=== PATIENT | male | born 1965 | race Caucasian/White ===

== ENCOUNTER 2021-10-29 19:35 | Emergency (ER) | payer MEDICAID, SELFPAY ==
[2021-10-29 19:56] VITALS: BP 110/64; BP 91/52; PULSE 83; PULSE 90; RESP 18; TEMP 36.8; O2SAT 95; O2SAT 98; BMI 18.6
[2021-10-29 19:56] LABS: Glucose, Whole Blood 86 mg/dL (60-115)
--- NOTE | 2021-10-29 20:00 | PC.NURSE ---
Addendum entered by Donna Leigh RN 10/29/21 22:29: pt upper/lower extremity had equal full strength, smile symmetrical Original Note: patient is awake/alert, able to answer questions about his medical history including what covid vaccination he had, pt is confused of date-thinks its a sunday in december, and wasnt sure of the president. Patient initially thought he was in [place] but corrected himself and stated he was at [facility].
--- NOTE | 2021-10-29 21:04 | ECG_ITS ---
Test Reason : general medical Blood Pressure : / mmHG Vent. Rate : 063 BPM Atrial Rate : 063 BPM P-R Int : 146 ms QRS Dur : 092 ms QT Int : 440 ms P-R-T Axes : 064 026 044 degrees QTc Int : 450 ms Normal sinus rhythm Normal ECG When compared with ECG of 22-FEB-2017 10:40, No significant change was found Referred By: Chyna Jean-Baptiste Electronically Signed By:BENTON LORA
--- NOTE | 2021-10-29 21:05 | ED_ITS ---
HPI - General Adult General Chief complaint: General Medical Stated complaint: ams Time Seen by Provider: 10/29/21 20:59 Source: patient and EMS Mode of arrival: EMS Limitations: no limitations History of Present Illness HPI narrative: Pt comes to the ED by EMS, According to the patient's new longterm, patient was altered. When EMS arrived to the longterm, patient was alert and oriented x3. Patient states that sometimes he gets confused when he leaves his stuff, but does not remember being altered or confused. Patient states that he does have history of occasional dizziness episodes but they self resolved. Patient states that this happened earlier today, did not have any chest pain or shortness of breath. At this time, patient is asymptomatic. Patient states that he does not know why he was sent to the emergency room Related Data Previous Rx's Medication Instructions Recorded ibuprofen 800 mg tablet 800 mg PO TID #90 tab 03/26/21 Allergies Allergy/AdvReac Type Severity Reaction Status Date / Time Iodinated Contrast Media Allergy Severe ANAPHYLAXIS Unverified 08/12/20 18:13 [IV DYE, IODINE CONTAINING CONTRAST ] buspirone Allergy Unknown dizziness Verified 05/21/19 00:00 buspirone Allergy Unknown dizziness Uncoded 07/03/19 00:[address] Allergy Unknown respiratory Uncoded 07/03/19 00:[address] Scan dye Allergy Unknown respiratory Uncoded 05/21/19 00:00 arrest sea food Allergy Unknown Uncoded 07/03/19 00:00 SEAFOOD Allergy Unknown UNKNOWN Uncoded 08/12/20 18:13 seafood Allergy Unknown Uncoded 05/21/19 00:00 Review of Systems Review of Systems: Constitutional : No Weight loss, No Fever, No Chills, No Night Sweats, No Fatigue, No Malaise ENT/Mouth : No Hearing loss, No Ear Pain, No Nasal Congestion, No Sinus Pain, No Hoarseness, No sore throat, No Rhinorrhea, No Swallowing Difficulty Eyes: No Eye Pain, No Swelling, No Redness, No Foreign Body, No Discharge, No Vision Changes Cardiovascular : No Chest Pain, No SOB, No Dyspnea on Exertion, No Orthopnea, No Edema, No Palpitations Respiratory : No Cough, No Sputum, No Wheezing, No Smoke Exposure, No Dyspnea Gastrointestinal : No Nausea, No Vomiting, No Diarrhea, No Constipation, No abdominal Pain, No Hematochezia, No Melena Genitourinary : no irregular bleeding, No Dysuria, No Urinary Frequency, No Hematuria, No Urinary Incontinence, No Urgency, No Flank Pain, No Urinary Flow Changes, No Hesitancy Musculoskeletal : No joint pain, No Myalgias, No Joint Swelling Skin : No Skin Lesions, No rash Neuro : No Weakness, No Numbness, No Paresthesias, No Loss of Consciousness, intermittent chronic episodes of dizziness, No Headache Psych : No Anxiety/Panic, No Depression, No SI/HI/AH/VH, No Social Issues, Heme/Lymph: No Bruising, No Bleeding,No Lymphadenopathy Endocrine : No Polyuria, No Polydipsia, No Temperature Intolerance [facility] Past Medical History Medical History COVID-19 Surgical History S/P cervical spinal fusion Social History Social History Alcohol intake: never Patient Tobacco Use Status: Former Tobacco user Use of substances other than those prescribed or required for medical reasons: No Advance Directives: No Advance Directives Information Provided: Yes Physical Exam Vital Signs: Vital Signs: Last Vital Signs Temp 98.0 F 10/29/21 22:00 Pulse 64 10/29/21 22:00 Resp 18 10/29/21 22:00 BP 96/52 L 10/29/21 22:00 Pulse Ox 64 L 10/29/21 22:00 BMI result Body Mass Index 18.6 Const: Other: Appearance: Alert. Oriented X3. No acute distress. Eyes: Pupils equal, round and reactive to light. ENT: Pharynx normal. Neck: Normal inspection. Neck supple. No lymph nodes noted. No crepitus CVS: Normal heart rate and rhythm. Pulses normal. Normal S1 and S2 Respiratory: No respiratory distress. Breath sounds normal. No Wheezing. No rales Abdomen: Soft and nontender. No rigidity. No distention. Skin: Skin warm and dry. Normal skin color. Normal skin turgor. Extremities: No lower extremity edema. No Lacerations. No Rash Neuro: Oriented X 3. No motor deficit. No sensory deficit. Moving all extermities. No slurred speech. Course Course Course Narrative: Throughout emergency room stay, patient has remained awake, alert and oriented x3. Calm, cooperative, not voicing any complaints. Patient's labs are at baseline, troponin negative, urinalysis negative. Patient feeling at baseline, patient being discharged to his longterm. Medical Decision Making Lab Data Result diagrams: 10/29/21 21:21 10/29/21 21:21 Labs: Lab Results 10/29/21 1210/29/21 Range/Units 19:51 21:21 21:21 WBC 10.1 (4.8-10.8) X10*3/uL RBC 4.72 (4.60-5.80) X10*6/uL Hgb 13.0 L (14.0-18.0) g/dl Hct 39.6 L (42.0-52.0) % MCV 83.9 (80.0-98.0) fL MCH 27.5 (27.0-33.0) pg MCHC 32.8 (31.0-36.0) g/dl RDW 14.3 (11.0-16.0) % Plt Count 321 (160-400) X10*3/uL MPV 8.7 L (9.4-12.4) fL Immature Gran % (Auto) 0.8 H (0.0-0.4) % Neut % (Auto) 60.6 (45-73) % Lymph % (Auto) 22.2 (20-40) % Canadian % (Auto) 8.5 (2-11) % Eos % (Auto) 6.5 H (0-4) % Baso % (Auto) 1.4 (0-2) % Lymph # (Auto) 2.3 (1.2-4.9) X10*3/uL Canadian # (Auto) 0.9 (0.1-1.2) X10*3/uL Eos # (Auto) 0.7 H (0.0-0.4) X10*3/uL Baso # (Auto) 0.1 (0.0-0.2) X10*3/uL Abs Immat Gran (auto) 0.08 H (0.00-0.03) X10*3/uL Absolute Neuts (auto) 6.2 (2.0-8.3) x10*3/uL Absolute Nucleated RBC 0.000 (0.0-0.012) X10*3/uL Nucleated RBC % (auto) 0.0 (0.0-0.2) /100WBC Sodium 135 (135-145) mmol/L Potassium 4.2 (3.3-5.1) mmol/L Chloride 98 (96-108) mmol/L Carbon Dioxide 31 H (22-29) mmol/L Anion Gap 10 L (12-20) BUN 19 H (9-16) mg/dL Creatinine 1.12 (0.5-1.4) mg/dL Estim Creat Clear Calc 68.5 Estimated GFR > 60 POC Glucose 86 (60-115) mg/dL Random Glucose 84 (60-115) mg/dL Calcium 10.1 (8.4-10.2) mg/dL Total Bilirubin 0.3 (0.0-1.0) mg/dL Direct Bilirubin < 0.2 (0.0-0.5) mg/dL AST 35 (5-37) U/L ALT 29 (0-40) U/L Alkaline Phosphatase 122 H (39-117) U/L Troponin I High Sens (<3.5-35.0) ng/L Total Protein 7.4 (6.5-8.0) g/dL Albumin 4.5 (3.5-5.0) g/dL Urine Color Urine Appearance Urine pH (5.0-8.0) Ur Specific [place] (1.005-1.025) Urine Protein (NEG-TRACE) MG/DL Urine Glucose (UA) (NEG) MG/DL Urine Ketones (NEG) MG/DL Urine Blood (NEG) Urine Nitrite (NEG) Ur Leukocyte Esterase (NEG) 10/29/21 10/29/21 Range/Units 21:21 21:21 WBC (4.8-10.8) X10*3/uL RBC (4.60-5.80) X10*6/uL Hgb (14.0-18.0) g/dl Hct (42.0-52.0) % MCV (80.0-98.0) fL MCH (27.0-33.0) pg MCHC (31.0-36.0) g/dl RDW (11.0-16.0) % Plt Count (160-400) X10*3/uL MPV (9.4-12.4) fL Immature Gran % (Auto) (0.0-0.4) % Neut % (Auto) (45-73) % Lymph % (Auto) (20-40) % Canadian % (Auto) (2-11) % Eos % (Auto) (0-4) % Baso % (Auto) (0-2) % Lymph # (Auto) (1.2-4.9) X10*3/uL Canadian # (Auto) (0.1-1.2) X10*3/uL Eos # (Auto) (0.0-0.4) X10*3/uL Baso # (Auto) (0.0-0.2) X10*3/uL Abs Immat Gran (auto) (0.00-0.03) X10*3/uL Absolute Neuts (auto) (2.0-8.3) x10*3/uL Absolute Nucleated RBC (0.0-0.012) X10*3/uL Nucleated RBC % (auto) (0.0-0.2) /100WBC Sodium (135-145) mmol/L Potassium (3.3-5.1) mmol/L Chloride (96-108) mmol/L Carbon Dioxide (22-29) mmol/L Anion Gap (12-20) BUN (9-16) mg/dL Creatinine (0.5-1.4) mg/dL Estim Creat Clear Calc Estimated GFR POC Glucose (60-115) mg/dL Random Glucose (60-115) mg/dL Calcium (8.4-10.2) mg/dL Total Bilirubin (0.0-1.0) mg/dL Direct Bilirubin (0.0-0.5) mg/dL AST (5-37) U/L ALT (0-40) U/L Alkaline Phosphatase (39-117) U/L Troponin I High Sens < 3.5 (<3.5-35.0) ng/L Total Protein (6.5-8.0) g/dL Albumin (3.5-5.0) g/dL Urine Color YELLOW Urine Appearance CLEAR Urine pH 6.0 (5.0-8.0) Ur Specific [place] 1.020 (1.005-1.025) Urine Protein NEG (NEG-TRACE) MG/DL Urine Glucose (UA) NEG (NEG) MG/DL Urine Ketones NEG (NEG) MG/DL Urine Blood TRACE (NEG) Urine Nitrite NEG (NEG) Ur Leukocyte Esterase NEG (NEG) ECG Data Attestation: I personally reviewed and interpreted this ECG as follows: (Normal sinus rhythm, heart rate 63, no ST segment depression or elevation, no T-wave inversion, QTC 450) Discharge Plan Discharge Clinical Impression: Confusion Patient Disposition: Home, Self-Care Additional Instructions: Please follow-up with your primary care physician tomorrow. If you have any worsening or new symptoms, please return to the emergency room or call 911 Prescriptions: No Action ibuprofen 800 mg tablet 800 mg PO TID Qty: 90 RF: 6
--- NOTE | 2021-10-29 21:23 | PC.NURSE ---
patient ambulated with stby assist to bathroom, patient a&ox3, vss, iv inserted, labs drawn, urine obtained, tech will do ekg/continue to monitor.
[2021-10-29 21:27] LABS: MANUAL DIFF FLAG NO
[2021-10-29 21:35] LABS: Basophils Absolute Auto 0.1 X10*3/uL (0.0-0.2); Basophils Percent Auto 1.4 % (0-2); Eosinophils Absolute Auto 0.7 X10*3/uL (0.0-0.4); Eosinophils Percent Auto 6.5 % (0-4); Hematocrit 39.6 % (42.0-52.0); Imm Gran Abs Auto 0.08 X10*3/uL (0.00-0.03); Imm Gran Pct Auto 0.8 % (0.0-0.4); Lymphocytes Absolute Auto 2.3 X10*3/uL (1.2-4.9); Lymphocytes Percent Auto 22.2 % (20-40); Mean Corpuscular HGB Conc 32.8 g/dl (31.0-36.0); Mean Corpuscular Hemoglobin 27.5 pg (27.0-33.0); Mean Corpuscular Volume 83.9 fL (80.0-98.0); Mean Platelet Volume 8.7 fL (9.4-12.4); Monocytes Absolute Auto 0.9 X10*3/uL (0.1-1.2); Monocytes Percent Auto 8.5 % (2-11); Neutrophils Absolute Auto 6.2 x10*3/uL (2.0-8.3); Neutrophils Percent Auto 60.6 % (45-73); Platelet Count 321 X10*3/uL (160-400); Red Blood Count 4.72 X10*6/uL (4.60-5.80); Red Cell Distribution Width 14.3 % (11.0-16.0); White Blood Count 10.1 X10*3/uL (4.8-10.8)
[2021-10-29 21:41] LABS: Appearance Urine CLEAR; Color Urine YELLOW; Glucose Urine UA NEG (NEG); Leukocyte Esterase Urine NEG (NEG); Nitrite Urine NEG (NEG); UACC Culture Trigger NO; Urine Blood TRACE (NEG); Urine Ketones NEG (NEG); Urine Protein NEG (NEG-TRACE)
[2021-10-29 21:48] LABS: Alanine Aminotransferase 29 U/L (0-40); Albumin Level 4.5 g/dL (3.5-5.0); Alkaline Phosphatase 122 U/L (39-117); Anion Gap 10 (12-20); Aspartate Amino Transferase 35 U/L (5-37); Bilirubin Direct < 0.2 mg/dL (0.0-0.5); Bilirubin Total 0.3 mg/dL (0.0-1.0); Blood Urea Nitrogen 19 mg/dL (9-16); Calcium 10.1 mg/dL (8.4-10.2); Carbon Dioxide 31 mmol/L (22-29); Chloride 98 mmol/L (96-108); Creatinine Clr Calc Pharmacy 68.5; Estimated Glomerular Filt Rate > 60; Glucose Random 84 mg/dL (60-115); Potassium 4.2 mmol/L (3.3-5.1); Sodium 135 mmol/L (135-145); Total Protein 7.4 g/dL (6.5-8.0)
[2021-10-29 21:51] LABS: Troponin-I High Sensitivity < 3.5 ng/L (<3.5-35.0)
[2021-10-29 22:00] VITALS: BP 96/52; PULSE 64; RESP 18; TEMP 36.7; O2SAT 64
[2021-10-29 23:14] LABS: Mucus Urine TRACE /LPF; Renal Epithelial Cells Urine TRACE /LPF; Squamous Epithelial Cell Urine TRACE /LPF
[2021-10-29 23:15] LABS: Calcium Oxalate Crystals Urine TRACE /LPF; WBC Urine 0-2 /HPF (0-4)
[2021-10-29 23:22] LABS: Amphetamine Screen Urine Not Detected (Not Detect); Barbiturates, Urine Not Detected (Not Detect); Benzodiazepines Screen Urine POSITIVE (Not Detect); Cannabinoid Screen Urine Not Detected (Not Detect); Cocaine Screen Urine Not Detected (Not Detect); Fentanyl, urine POSITIVE (Not Detect); Opiate Screen Urine Not Detected (Not Detect); Phencyclidine Screen Urine Not Detected (Not Detect)
== END 2021-10-29 23:58 | disposition home or self-care (01) ==
PROVIDERS: Emergency Provider Emergency Medicine
DX: R41.0 Disorientation, unspecified (principal)
CPT/HCPCS: 36415; 80048; 80076; 80307; 81001; 82947; 84484; 85025; 93005; 99283; 99285

== ENCOUNTER 2023-11-16 10:46 | Emergency (ER) | payer OTHER, SELFPAY ==
[2023-11-16 10:50] VITALS: BP 126/69; PULSE 79; RESP 18; TEMP 36.6; O2SAT 95; BMI 21.6
--- OUTSIDE RECORDS SUMMARY | 2023-11-16 11:16 | XMS_ITS | Continuity of Care Document ---
Author Name Unknown Organization [facility] ter Address [address] [place] [id number]- Care Team Providers Care Dust Puller Name Role Phone Emre CORNELIUS, Haroldo Smallwood Primary Care Physician [phone] Encounter [facility] Date(s): 09/14/21 - 09/14/[address] [address]- Encounter Diagnosis Shortness of breath(Final) - 09/14/21 Discharge Disposition: A-D/C Home Attending Physician: Kleber Montanez MD Admitting Physician: Kleber Montanez MD Referring Physician: Not on Staff, Referring MD Allergies, Adverse Reactions, Alerts Substance Reaction Severity Status Contrast Dye to CT scan dye, cardiac Acti ve Seafood Active Medications Acetaminophen By Mouth, 3 times a day, 1 tablet tid, 0 Refills, Maintenance, 07/18/21 8:19:00 EDT, Partial fill upon patient request if the prescription is for a schedule II opioid drug. Start Date: 07/18/21 Status: Ordered amiTRIPTYLINE = 25 mg, By Mouth, Daily at bedtime, 1-2 tabs, 0 Refills, Maintenance, 12/28/20 14:07:00 EST, Partial fill upon patient request if the prescription is for a schedule II opioid drug. Start Date: 12/28/20 Status: Ordered Breo Ellipta 100 mcg-25 mcg/inh inhalation powder 1 puffs, Inhalation, Daily, # 1 each, 5 Refills, Maintenance, 08/12/21 14:00:00 EDT, Powder, [id number], Partial fill upon patient request if the prescription is for a schedule II opioid drug., 1 puffs Inhalation Daily, 188, cm, 07/18/21 8:17:... Start Date: 08/12/21 Status: Ordered Flexeril 10 mg oral tablet 1 tablet = 10 mg, By Mouth, 3 times a day, Maintenance, 08/30/11 13:26:43 EDT Start Date: 08/30/11 Status: Ordered Gabapentin = 300 mg, By Mouth, 3 times a day, 0 Refills, Maintenance, 12/28/20 14:06:00 EST, Partial fill uponpatient request if the prescription is for a schedule II opioid drug. Start Date: 12/28/20 Status: Ordered HydrOXYzine Every 8 hours, PRN Other, 25-50 mg, 0 Refills, Maintenance, 12/28/20 14:05:00 EST, Partial fill upon patient request if the prescription is for a schedule II opioid drug. Start Date: 12/28/20 Status: Ordered ibuprofen 800 mg oral tablet 1 tablet = 800 mg, By Mouth, 3 times a day, Maintenance Start Date: 08/30/11 Status: Ordered Incruse Ellipta 62.5 mcg/inh inhalation powder 1 inhalation = 62.5 mcg, Inhalation, Every 24 hours, doses should be taken at least 24 hours apart,# 1 each, 11 Refills, Maintenance, 08/15/21 14:23:00 EDT, Powder, [facility]/pharmacy #[id number], Partial fill upon patient request if the prescription is for a sc... Start Date: 08/15/21 Status: Ordered Keppra 500 mg oral tablet 1 tablet = 500 mg, By Mouth, Daily, Maintenance, 08/30/11 13:26:24 EDT Start Date: 08/30/11 Status: Ordered Methadone = 75 mg, By Mouth, Daily, 0 Refills, Maintenance, 12/28/20 14:07:00 EST, Partial fill upon patient request if the prescription is for a schedule II opioid drug. Start Date: 12/28/20 Status: Ordered Sertraline = 200 mg, By Mouth, Daily, 0 Refills, Maintenance, 12/28/20 14:03:00 EST, Partial fill upon patientrequest if the prescription is for a schedule II opioid drug. Start Date: 12/28/20 Status: Ordered Trazodone = 300 mg, By Mouth, Daily at bedtime, 0 Refills, Maintenance, 12/28/20 14:06:00 EST, Partial fill upon patient request if the prescription is for a schedule II opioid drug. Start Date: 12/28/20 Status: Ordered Problem List Condition Effective Dates Status Health Status Inform ant Nicotine dependence with cur rent use(Confirmed) Active COPD with emphysema(Confirmed) Active Results Radiology Reports * Exam Date Time Procedure Performing Provider Status 09/14/21 9:00 AM Chest 2 Views Frontal and Lat Kristina Covington; Tyrell (Verified) Notes: (Chest 2 Views Frontal and Lat) Reason For Exam: Shortness of Breath, Fever;Other: RESULT: Chest 2 Views Frontal and Lat Chest 2 Views Frontal and Lat Hx of Present Illness: coming from detention, s p COVID(11 14), now vaccinated as well. developed PE shortly after covid dx. PCP wants pt r o for PE for intermittent SOB. Reason: Shortness of Breath, Fever; Clinical Question(s): Pneumonia COMPARISON: Multiple priors most recently to 12/28/2020 FINDINGS: LINES AND TUBES: None. LUNGS AND PLEURA: There continues to be small amount of patchy opacities in the bilateral lungs, predominantly in thelower lobes. Normal pulmonary vascularity. No pleural effusion. No pneumothorax. HEART, MEDIASTINUM AND FARNCIS: Heart is normal in size. Normal upper mediastinal and hilar contour. BONES AND SOFT TISSUES: No acute abnormality. IMPRESSION: Small amount of the bilateral patchy opacities remain, predominantly in the lower lobes, further improved from prior, which could represent sequela from prior COVID-19 pneumonia or represent acute atypical pneumonia. Please clinically correlate. I have personally reviewed the images and I agree with this report. WSN: [id number] Ordering Physician: Cody Thapa Dictated By: Miky Fajardo DO Dictated Date/Time: 09/14/21 10:03 a Reviewed By: Mariano Pederson MD Signed By: Mariano Pederson MD Signed Date/Time: 09/14/21 10:08 am Transcribed By: TYLER Transcribed Date/Time: 09/14/21 9:25 am Vital Signs Most recent to oldest [Reference Range]: 1 2 3 Height 188 cm (09/14/21 8:09 AM) Weight 68.2 kg (09/14/21 8:09 AM) Oxygen Saturation [94-100 %] 100 % (09/14/21 4:35 PM) 100 % (09/14/21 2:21 PM) 100 % (09/14/21 11:48 AM) Pulse Rate [55-90 bpm] 70 bpm (09/14/21 4:35 PM) 60 bpm (09/14/21 2:21 PM) 60 bpm (09/14/21 11:48 AM) Blood Pressure [90-138/55-84 mm Hg] 125/78mm Hg (09/14/21 4:35 PM) 110/63mm Hg (09/14/21 2:21 PM) 102/60mm Hg (09/14/21 11:48 AM) Respiratory Rate [16-30 br/min] 20 br/min (09/14/21 4:35 PM) 16 br/min (09/14/21 2:21 PM) 14 br/min *L* (09/14/21 11:48 AM) Temperature [96.8-100.4 DegF] 98 DegF (09/14/21 4:35 PM) 98 DegF (09/14/21 2:21 PM) 98.1 DegF (09/14/21 8:09 AM) Liters per Minute 0 L/min (09/14/21 8:09 AM) Mode of Delivery (Oxygen) Room air (09/14/21 4:35 PM) Room air (09/14/21 2:21 PM) Room air (09/14/21 11:48 AM) Blood pressure sites Arm, right (09/14/21 4:35 PM) Arm, right (09/14/21 2:21 PM) Arm, right (09/14/21 11:48 AM) Temperature Route Oral (09/14/21 4:35 PM) Oral (09/14/21 2:21 PM) Axillary (09/14/21 8:09 AM) Dry Weight 68.2 kg (09/14/21 8:09 AM) Weight Obtained Via Patient/family stated (09/14/21 8:09 AM) Dry Weight Obtained Via Patient/family stated (09/14/21 8:09 AM)
--- OUTSIDE RECORDS SUMMARY | 2023-11-16 11:17 | XMS_ITS | Continuity of Care Document ---
Author Name Unknown Organization [facility] Address [address] [place] [address]- Care Team Providers Care Atomic Welder Name Role Phone Haroldo Andrea MD Primary Care Physician Encounter [facility] Date(s): 08/12/21 - 09/11/21 [facility] [address] [place] [address]- [place] Allergies, Adverse Reactions, Alerts Substance Reaction Severity [...] 5 Refills, Maintenance, 08/12/21 14:00:00 EDT, Powder, [facility]/pharmacy #[id number], Partial fill upon patient request if the [...] 11 Refills, Maintenance, 08/15/21 14:23:00 EDT, Powder, [facility]/pharmacy #[id number], Partial fill upon [...]
--- OUTSIDE RECORDS SUMMARY | 2023-11-16 11:17 | XMS_ITS | Continuity of Care Document ---
Author Name Unknown Organization [facility] Address [address] [address]- Care Team Providers Care Canteen Manager Name Role Phone Emre CORNELIUS, Haroldo Smallwood Primary Care Physician Encounter [facility] Date(s): 11/17/21 - 01/04/22 [facility] [address] [address]- Attending Physician: Christy Bird MD Admitting Physician: Christy Bird MD Allergies, Adverse Reactions, Alerts Substance Reaction [...] inhalation powder 1 puffs, Inhalation, Daily, # 30 each, 6 Refills, Maintenance, 11/17/21 13:13:00 EST, Powder, [facility]/pharmacy #[id number], Partial fill upon patient request if the prescription is for a schedule II opioid drug., 1 puffs Inhalation Daily, 188, cm, 10/18/21 13:1... Start Date: 11/17/21 Status: Ordered Flexeril 10 mg oral tablet 1 tablet = 10 mg, By Mouth, 3 times a day, Maintenance, 08/30/11 13:26:43 EDT Start Date: 10/5/11 Status: Ordered Gabapentin = 300 mg, By [...] hours apart,# 1 each, 11 Refills, Maintenance, 11/17/21 13:14:00 EST, Powder, [facility]/pharmacy #[id number], Partial fill upon patient request if the prescription is for a sc... Start Date: 11/17/21 Status: Ordered Keppra 500 mg oral tablet 1 tablet = 500 mg, By Mouth, Daily, Maintenance, 08/30/11 13:26:24 EDT Start Date: 08/30/11 Status: Ordered Methadone = 90 mg, By Mouth, Daily, 0 Refills, Maintenance, [...] rent use(Confirmed) Active COPD with emphysema(Confirmed) Active Social History Social History Type Response Smoking Status Former smoker, quit more than 30 days ago; Use: Per pt on 10/18/2021 , he sometimes vapes. entered on: 10/18/21 Sex
--- OUTSIDE RECORDS SUMMARY | 2023-11-16 11:17 | XMS_ITS | Continuity of Care Document ---
Author Name Unknown Organization [facility] ter Address [address] [place] [address]- Care Team Providers Care Data Management Associate Name Role Phone Emre CORNELIUS, Haroldo Smallwood Primary Care Physician Encounter [facility] Date(s): 11/13/22 - 12/23/[address] [address]- Attending Physician: Christy Bird MD Admitting Physician: Christy Bird MD Referring Physician: Christy Bird MD Allergies, Adverse Reactions, [...] inhalation powder 1 puffs, Inhalation, Daily, # 60 each, 6 Refills, Maintenance, 10/04/22 10:08:00 EST, [id number], 30, INHALE 1 PUFF BY MOUTH DAILY, 188, cm, 08/18/22 14:08:00 EDT, Height, 68.2, kg, 09/14/21 8:15:00 EDT, Dry Weight Start Date: 10/04/22 Status: Ordered Flexeril 10 mg oral tablet [...] Incruse Ellipta 62.5 mcg/inh inhalation powder 1 inhalation, Inhalation, Every 24 hours, # 30 each, 11 Refills, Maintenance, 10/04/22 10:08:00 EST, [id number], 188, cm, 08/18/22 14:08:00 EDT, Height, 68.2, kg, 09/14/21 8:15:00 EDT, Dry Weight Start Date: 10/04/22 Status: Ordered Keppra 500 mg oral tablet [...] Date: 12/28/20 Status: Ordered Problem List Condition Confirmation Course Effective Dates Status Health St [facility] Informant Nicotine dependence with current use Confirmed Active COPD with emphysema Confirmed Active Social History Social History Type Response Smoking Status Former smoker, quit more than 30 days ago; Use: Per pt on 10/18/2021 , he sometimes vapes. entered on: 10/18/21 Sex Patient Care team information Care Team Personnel Name: Haroldo Andrea MD Position: Reference Physician Member Role: PCP Address: Address: [address] [place] [id number]- Name: Carolina Lyons RN Position: S ED RN W/OE and Tasks Member Role: Primary Care Nurse Care Team Related Persons Name: SANDRA GUIDRY Address: home [address] [place] [address] [place] [address]
--- OUTSIDE RECORDS SUMMARY | 2023-11-16 11:17 | XMS_ITS | Continuity of Care Document ---
Author Name Unknown Organization [facility] Address [address] [place] [address]- Care Team Providers Care Manager Of Business Name Role Phone Haroldo Andrea MD Primary Care Physician [phone] Encounter [facility] [place] Date(s): 10/05/21 - 11/04/21 [facility] [address] [place] [address]- [place] Allergies, Adverse Reactions, Alerts Substance Reaction [...] 5 Refills, Maintenance, 08/12/21 14:00:00 EDT, Powder, [facility]/pharmacy #[id number], Partial fill upon patient request if the [...] 11 Refills, Maintenance, 08/15/21 14:23:00 EDT, Powder, [facility]/pharmacy #[id number], Partial fill upon patient request if the [...]
--- OUTSIDE RECORDS SUMMARY | 2023-11-16 11:17 | XMS_ITS | Continuity of Care Document ---
Author Name Unknown Organization [facility] Address [address] [place] [address]- Care Team Providers Care Insurance Consultant Name Role Phone Emre CORNELIUS, Haroldo Smallwood Primary Care Physician Encounter [facility] [place] Date(s): 06/11/23 - 07/11/23 [facility] [address] [place] [id number] Attending Physician: Mica, Gilmer Admitting Physician: Admtr, Ar8 Referring Physician: Admtr, Ar8 Allergies, Adverse Reactions, Alerts Substance Reaction Severity [...] opioid drug. Start Date: 12/28/20 Status: Ordered Flexeril 10 mg oral tablet 1 tablet = 10 mg, By Mouth, 3 times a day, Maintenance, 08/30/11 13:26:43 EDT Start Date: 08/30/11 Status: Ordered fluticasone-vilanterol 100 mcg-25 mcg/inh inhalation powder 1 puffs, Inhalation, Daily, # 60 each, 6 Refills, Maintenance, 05/01/23 8:39:00 EDT, [facility], 30, INHALE 1 PUFF BY MOUTH DAILY, 188, cm, 08/18/22 14:08:00 EDT, Height, 68.2, kg, 09/14/21 8:15:00 EDT, Dry Weight Start Date: 05/01/23 Status: Ordered Gabapentin = 300 mg, By [...] each, 11 Refills, Maintenance, 10/04/22 10:08:00 EST, [id number], 188, cm, 08/18/22 14:08:00 EDT, Height, 68.2, [...] he sometimes vapes. entered on: 10/18/21 Sex Hospital Consult note * Event Display: Inpatient Consult Note, Non-BH Authored Date: Cardiology * Event Display: Non Cardiovascular Results Authored Date: * Event Display: EKG Non Authored Date: Patient Care team information Care Team Personnel Name: Emre CORNELIUS, Haroldo Smallwood Position: Reference Physician Member Role: PCP Address: Address: [address] [place] [id number]- Name: Carolina Lyons RN Position: [facility] RN Member Role: Primary Care Nurse Care Team Related Persons Name: SANDRA GUIDRY Address: [address] [place] [address]
--- OUTSIDE RECORDS SUMMARY | 2023-11-16 11:17 | XMS_ITS | Continuity of Care Document ---
Author Name Unknown Organization [facility] Address [address] [address]- Care Team Providers Care Director Of Marketing Google Performance Ads Name Role Phone Emre CORNELIUS, Haroldo Smallwood Primary Care Physician [place] [facility] [place]17[place]21 - 12/17/21 [facility] [address] [address]- Allergies, Adverse Reactions, Alerts Substance Reaction Severity [...] 6 Refills, Maintenance, 11/17/21 13:13:00 EST, Powder, [facility]/pharmacy #[id number], Partial fill upon patient request if the [...] 11 Refills, Maintenance, 11/17/21 13:14:00 EST, Powder, [facility]/pharmacy #[id number], Partial fill upon patient request if [...]
--- OUTSIDE RECORDS SUMMARY | 2023-11-16 11:17 | XMS_ITS | Continuity of Care Document ---
Author Name Unknown Organization [facility] Address [address] [place] [address]- Care Team Providers Care Analytical Strategist Name Role Phone Haroldo Andrea MD Primary Care Physician Encounter [facility] [place] ACCT R [id number] Date(s): 04/27/23 - 07/11/23 [facility] [address] [place] [address] Attending Physician: Christy Bird MD Admitting Physician: Christy Bird MD Referring Physician: Haroldo Andrea MD Allergies, Adverse Reactions, Alerts Substance Reaction [...] each, 6 Refills, Maintenance, 05/01/23 8:39:00 EDT, [facility] STORE 62843, 30, INHALE 1 PUFF BY MOUTH DAILY, [...] each, 11 Refills, Maintenance, 10/04/22 10:08:00 EST, [facility] ST[facility] 88954, 188, cm, 08/18/22 14:08:00 EDT, Height, 68.2, [...] Reference Physician Member Role: PCP Address: Address: [address] [place] [address]- Name: Carolina Lyons RN Position: S RN Member Role: Primary Care Nurse Care Team Related Persons Name: SANDRA GUIDRY Address: [address] [place] [address]
--- OUTSIDE RECORDS SUMMARY | 2023-11-16 11:17 | XMS_ITS | Continuity of Care Document ---
Author Name Unknown Organization [facility] ter Address [address] [place] [address]- Care Team Providers Care Quality Assurance Lead Name Role Phone Emre CORNELIUS, Haroldo Smallwood Primary Care Physician [place] [facility] [place] 12/25/20 - 12/25/[address] [address]- Encounter Diagnosis COVID-19(Final) - 12/25/20 Cough(Final) - 12/25/20 Discharge Disposition: A-D/C Home Attending Physician: Deisy Schmidt MD Admitting Physician: Deisy Schmidt MD Referring Physician: Not on Staff, Referring MD Allergies, Adverse Reactions, Alerts Substance Reaction Severity Status Contrast Dye to CT scan dye, cardiac Acti ve Medications Dilantin = 200 mg, By Mouth, 2 times a day, Maintenance Start Date: 08/30/11 Status: Ordered Flexeril 10 mg oral tablet 1 tablet = 10 mg, By Mouth, 2 times a day, Maintenance Start Date: 08/30/11 Status: Ordered ibuprofen 800 mg oral tablet 1 tablet = 800 mg, By Mouth, 3 times a day, Maintenance Start Date: 08/30/11 Status: Ordered Keppra 500 mg oral tablet 1 tablet = 500 mg, By Mouth, 2 times a day, Maintenance Start Date: 08/30/11 Status: Ordered Seroquel 400 mg oral tablet 1 tablet = 400 mg, By Mouth, Daily at bedtime, Maintenance Start Date: 08/30/11 Status: Ordered tramadol 50 mg oral tablet 1 tablet = 50 mg, By Mouth, Every 8 hours, 0 Refills, Maintenance Start Date: 10/06/11 Status: Ordered Tylox 1 tablet, By Mouth, 2 times a day, Maintenance Start Date: 08/30/11 Status: Ordered Wellbutrin 100 mg oral tablet 2 tablet = 200 mg, By Mouth, 2 times a day, Maintenance Start Date: 08/30/11 Status: Ordered Zoloft Tablet = 150 mg, By Mouth, Daily, Maintenance Start Date: 08/30/11 Status: Ordered Results Radiology Reports * Exam Date Time Procedure Performing Provider Status 12/25/20 11:57 AM Chest Portable ChandlerPrincess Chirinos; Tyrell (Verified) Notes: (Chest Portable) Reason For Exam: Shortness of Breath RESULT: Chest Portable Chest Portable Hx of Present Illness: Shortness of breath. COVID positive. COMPARISON: None. FINDINGS: LINES AND TUBES: None. LUNGS AND PLEURA: Moderate peripheral right upper lung airspace disease with patchy airspace disease in the lower lobes of both lungs. Interstitial prominence bilaterally. Normal pulmonary vascularity. No pleural effusion or HEART, MEDIASTINUM AND FRANCIS: Heart is normal in size. Normal upper mediastinal and hilar contour. BONES AND SOFT TISSUES: No acute abnormality. IMPRESSION: Right greater than left likely COVID pneumonia superimposed on COPD. WSN: [id number] Ordering Physician: Matt Bhat Dictated By: Yohannes Dimas MD Dictated Date/Time: 12/25/20 12:06 p Reviewed By: Yohannes Dimas MD Signed By: Yohannes Dimas MD Signed Date/Time: 12/25/20 12:06 pm Transcribed By: TYLER Transcribed Date/Time: 12/25/20 12:03 pm Vital Signs Most recent to oldest [Reference Range]: 1 2 3 Oxygen Saturation [94-100 %] 99 % (12/25/20 3:49 PM) 100 % (12/25/20 3:34 PM) 100 % (12/25/20 12:28 PM) Pulse Rate [55-90 bpm] 72 bpm (12/25/20 3:34 PM) 74 bpm (12/25/20 12:28 PM) 66 bpm (12/25/20 11:12 AM) Blood Pressure [90-138/55-84 mm Hg] 110/70mm Hg (12/25/20 3:34 PM) 106/61mm Hg (12/25/20 12:28 PM) 109/64mm Hg (12/25/20 11:12 AM) Respiratory Rate [16-30 br/min] 16 br/min (12/25/20 3:34 PM) 16 br/min (12/25/20 12:28 PM) 15 br/min *L* (12/25/20 11:12 AM) Temperature [96.8-100.4 DegF] 98.0 DegF (12/25/20 3:49 PM) 98.1 DegF (12/25/20 12:28 PM) 98.2 DegF (12/25/20 10:09 AM) Liters per Minute 2 L/min (12/25/20 3:34 PM) 2 L/min (12/25/20 12:28 PM) 2 L/min (12/25/20 11:12 AM) Mode of Delivery (Oxygen) Room air (12/25/20 3:49 PM) Nasal cannula (12/25/20 3:34 PM) Nasal cannula (12/25/20 12:28 PM) Temperature Route Oral (12/25/20 3:49 PM) Oral (12/25/20 12:28 PM) Oral (12/25/20 10:09 AM)
--- OUTSIDE RECORDS SUMMARY | 2023-11-16 11:17 | XMS_ITS | Continuity of Care Document ---
Author Name Unknown Organization [facility] Address [address] [place] [address]- Care Team Providers Care Radiation Control Worker Name Role Phone Emre CORNELIUS, Haroldo Smallwood Primary Care Physician [phone] [place] [facility] [place] 10/25[place]22 - 11/24/22 [facility] [address] [place] [address]- Allergies, Adverse Reactions, Alerts Substance Reaction Severity [...] each, 6 Refills, Maintenance, 10/04/22 10:08:00 EST, [facility] 89621, 30, INHALE 1 PUFF BY MOUTH DAILY, [...] each, 11 Refills, Maintenance, 10/04/22 10:08:00 EST, [facility] ST[facility] 31703, 188, cm, 08/18/22 14:08:00 EDT, Height, 68.2, [...] Reference Physician Member Role: PCP Address: Address: [address] [place] [address]- Name: Carolina Lyons RN Position: S ED RN W/OE and Tasks Member Role: Primary Care Nurse Care Team Related Persons Name: SANDRA GUIDRY Address: [address] [place] [address]
--- OUTSIDE RECORDS SUMMARY | 2023-11-16 11:17 | XMS_ITS | Continuity of Care Document ---
Author Name Unknown Organization [facility] Address [address] [address]- Care Team Providers Care Commercial Account Officer Name Role Phone Emre CORNELIUS, Haroldo Smallwood Primary Care Physician [place] [facility] [place] 11/02/22 - 12/02/22 [facility] [address] [place] [address]- Allergies, Adverse Reactions, Alerts Substance Reaction Severity [...] each, 6 Refills, Maintenance, 10/04/22 10:08:00 EST, [email or web address] ST[facility] 92070, 30, INHALE 1 PUFF BY MOUTH DAILY, [...] each, 11 Refills, Maintenance, 10/04/22 10:08:00 EST, [email or web address] STORE 85733, 188, cm, 08/18/22 14:08:00 EDT, Height, 68.2, [...] Reference Physician Member Role: PCP Address: Address: [address] [place] [address]- Name: Carolina Lyons RN Position: S ED RN W/OE and Tasks Member Role: Primary Care Nurse Care Team Related Persons Name: SANDRA GUIDRY Address: [address] [place] [address]
--- OUTSIDE RECORDS SUMMARY | 2023-11-16 11:17 | XMS_ITS | Continuity of Care Document ---
Author Name Unknown Organization [facility] ter Address [address] [place] [address]- Care Team Providers Care Fisher Sponge Hooking Name Role Phone Emre CORNELIUS, Haroldo P Primary Care Physician Encounter [facility] [place] Date(s): 02/04/22 - 03/12/[address] [address]- Attending Physician: Byron Perla MD Admitting Physician: Byron Perla MD Referring Physician: Christy Bird MD Allergies, [...] 6 Refills, Maintenance, 11/17/21 13:13:00 EST, Powder, [facility]/pharmacy #[id number], Partial fill upon patient request if the [...] 11 Refills, Maintenance, 11/17/21 13:14:00 EST, Powder, [facility]/pharmacy #[id number], Partial fill upon patient [...]
--- OUTSIDE RECORDS SUMMARY | 2023-11-16 11:17 | XMS_ITS | Continuity of Care Document ---
Author Name Unknown Organization [facility] Address [address] [address]- Care Team Providers Care Cardiac Care Unit Nurse Name Role Phone Haroldo Andrea MD Primary Care Physician Encounter [facility] [place] Date(s): 01/25/22 - 05/25/22 [facility] [address] [place] [address] Attending Physician: Christy Bird MD Admitting Physician: [...] 6 Refills, Maintenance, 11/17/21 13:13:00 EST, Pow[facility], [id number], Partial fill upon patient request if the [...] 11 Refills, Maintenance, 11/17/21 13:14:00 EST, Powder, [facility]/pharmacy #[id number], Partial fill upon patient request if [...]
--- OUTSIDE RECORDS SUMMARY | 2023-11-16 11:17 | XMS_ITS | Continuity of Care Document ---
Author Name Unknown Organization [facility] Address [address] [address]- Care Team Providers Care Desizing Machine Offbearer Name Role Phone Emre CORNELIUS, Haroldo Smallwood Primary Care Physician Encounter [facility] [place] Date(s): 01/17/22 - 03/12/22 [facility] [address] [address]- Attending Physician: Christy Bird MD Admitting Physician: [...] 6 Refills, Maintenance, 11/17/21 13:13:00 EST, Powder, [facility]/pharmacy #[id number], Partial fill upon patient request if the [...] 11 Refills, Maintenance, 11/17/21 13:14:00 EST, Powder, [facility]/pharmacy #[id number], Partial fill upon patient request if the [...]
--- OUTSIDE RECORDS SUMMARY | 2023-11-16 11:17 | XMS_ITS | Continuity of Care Document ---
Author Name Unknown Organization [facility] Address [address] [place] [address]- Care Team Providers Care Rug Weaver Name Role Phone Emre CORNELIUS, Haroldo Smallwood Primary Care Physician En[place] [facility] [place] Date(s): 12/28/20 - 01/03/[address] [address] [phone] Discharge Disposition: A-D/C Home Attending Physician: Wyatt Brooks DO Admitting Physician: Romina Gonzalez MD Referring Physician: Not on Staff, Referring MD Allergies, Adverse Reactions, Alerts Substance Reaction Severity Status Contrast Dye to CT scan dye, cardiac Acti ve Seafood Active Medications amiTRIPTYLINE = 25 mg, By Mouth, Daily at bedtime, 1-2 tabs, 0 Refills, Maintenance, 12/28/20 14:07:00 EST, Partial fill upon patient request if the prescription is for a schedule II opioid drug. Start Date: 12/28/20 Status: Ordered Flexeril 10 mg oral tablet 10 mg, Tablet, By Mouth, 01/03/21 9:00:00 EST Start Date: 01/03/21 Stop Date: 01/03/21 Status: Completed Flexeril 10 mg oral tablet 1 tablet = 10 mg, By Mouth, 3 times a day, Maintenance, 08/30/11 13:26:43 EDT Start Date: 08/30/11 Status: Ordered Gabapentin = 300 mg, By Mouth, 3 times a day, 0 Refills, Maintenance, 12/28/20 14:06:00 EST, Partial fill uponpatient request if the prescription is for a schedule II opioid drug. Start Date: 12/28/20 Status: Ordered gabapentin 300 mg oral capsule 300 mg, Capsule, By Mouth, 01/03/21 9:00:00 EST Start Date: 01/03/21 Stop Date: 01/03/21 Status: Completed HydrOXYzine Every 8 hours, PRN Other, 25-50 [...] opioid drug. Start Date: 12/28/20 Status: Ordered Results Radiology Reports * Exam Date Time Procedure Performing Provider Status 12/28/20 11:14 AM Chest Portable Yasmeen Ramirez (Verified) Notes: (Chest Portable) Reason For Exam: Cough RESULT: Chest Portable Chest Portable REASON: Cough; Clinical Question(s): Pneumonia COMPARISON: 12/25/2020 FINDINGS: LINES AND TUBES: None. LUNGS AND PLEURA: Mild improvement of previously described peripheral patchy airspace disease. No pleural effusion. No pneumothorax. HEART, MEDIASTINUM AND FRANCIS: Heart is normal in size. Normal upper mediastinal and hilar contour. BONES AND SOFT TISSUES: No acute abnormality. IMPRESSION: Mild improvement of patchy airspace disease consistent with known history of COVID 19 infection. I have personally reviewed the images and I agree with this report. WSN: [id number] Ordering Physician: Jared Nguyen Dictated By: Sterling Baumann DO Dictated Date/Time: 12/28/20 11:37 a Reviewed By: Ace Sequeira MD Signed By: Ace Sequeira MD Signed Date/Time: 12/28/20 11:42 am Transcribed By: TYLER Transcribed Date/Time: 12/28/20 11:21 am Vital Signs Most recent to oldest [Reference Range]: 1 2 3 Height 168 cm (01/03/21 11:44 AM) 168 cm (01/03/21 8:43 AM) 168 cm (01/03/21 4:28 AM) Weight 67.1 kg (01/01/21 4:29 AM) 67.8 kg (12/28/20 2:06 PM) 84.5 kg (12/28/20 12:18 PM) Oxygen Saturation [94-100 %] 94 % (01/03/21 11:44 AM) 94 % (01/03/21 8:43 AM) 95 % (01/03/21 4:28 AM) Pulse Rate [55-90 bpm] 72 bpm (01/03/21 11:44 AM) 75 bpm (01/03/21 8:43 AM) 74 bpm (01/03/21 4:28 AM) Body Mass Index [18.5-24.99] 24.02 (12/28/20 2:06 PM) 29.94 *H* (12/28/20 12:18 PM) Blood Pressure [90-138/55-84 mm Hg] 107/53mm Hg (01/03/21 11:44 AM) 106/59mm Hg (01/03/21 8:43 AM) 105/63mm Hg (01/03/21 4:28 AM) Respiratory Rate [16-30 br/min] 18 br/min (01/03/21 11:44 AM) 20 br/min (01/03/21 10:02 AM) 20 br/min (01/03/21 10:01 AM) Temperature [96.8-100.4 DegF] 98.3 DegF (01/03/21 11:44 AM) 97.9 DegF (01/03/21 8:43 AM) 98 DegF (01/03/21 4:28 AM) Liters per Minute 1 L/min (01/01/21 6:00 AM) 1 L/min (01/01/21 1:45 AM) 3 L/min (12/31/20 11:28 AM) Mode of Delivery (Oxygen) Room air (01/03/21 11:44 AM) Room air (01/03/21 8:43 AM) Room air (01/03/21 4:28 AM) Blood pressure sites Arm, right (01/03/21 11:44 AM) Arm, right (01/03/21 8:43 AM) Arm, right (01/03/21 4:28 AM) Temperature Route Oral (01/03/21 11:44 AM) Oral (01/03/21 8:43 AM) Oral (01/03/21 4:28 AM) Dry Weight 67.8 kg (12/28/20 2:06 PM) 84.5 kg (12/28/20 12:18 PM) 84.5 kg (12/28/20 11:11 AM) Weight Obtained Via Bed scale (12/28/20 2:06 PM) Dry Weight Obtained Via Bed scale (12/28/20 2:06 PM)
--- OUTSIDE RECORDS SUMMARY | 2023-11-16 11:17 | XMS_ITS | Continuity of Care Document ---
Author Name Unknown Organization [facility] Address [address] [address]- Care Team Providers Care Data Operations Leader Name Role Phone Emre CORNELIUS, Haroldo Smallwood Primary Care Physician [phone] Encounter [facility] [place] Date(s): 08/18/22 - 09/17/22 [facility] [address] [place] [id number] Attending Physician: Gilmer Nino Admitting Physician: AdmGilmer hitchcock Referring Physician: Admtr, Ar8 Allergies, Adverse Reactions, [...] Refills, Maintenance, 11/17/21 13:13:00 EST, [facility], [id number], Partial fill upon patient request if the [...] 11 Refills, Maintenance, 11/17/21 13:14:00 EST, Powder, [facility]/pharmacy #[id number], Partial fill upon patient request [...] on: 10/18/21 Sex Patient Care team information Personnel Name: Emre CORNELIUS, Haroldo Smallwood Address: Address: [address] [place] [id number]
--- OUTSIDE RECORDS SUMMARY | 2023-11-16 11:17 | XMS_ITS | Continuity of Care Document ---
Author Name Unknown Organization [facility] ter Address [address] [place] [address]- Care Team Providers Care Formula Clerk Name Role Phone Emre CORNELIUS, Haroldo P Primary Care Physician [phone] [facility] [place] Date(s): 12/09/21 - 01/14/[address] [address]- Attending Physician: Byron Perla MD Admitting Physician: [...] 6 Refills, Maintenance, 11/17/21 13:13:00 EST, Powder, [facility]/pharmacy #[id number], Partial fill upon patient request if the [...] 11 Refills, Maintenance, 11/17/21 13:14:00 EST, Powder, [facility]/pharmacy #[id number], Partial fill upon patient request [...]
--- OUTSIDE RECORDS SUMMARY | 2023-11-16 11:17 | XMS_ITS | Continuity of Care Document ---
Author Name Unknown Organization [facility] Address [address] [address]- Care Team Providers Care Clinical Sciences Professor Name Role Phone Emre CORNELIUS, Haroldo Smallwood Primary Care Physician Encounter [facility] [place] Date(s): 08/15/21 - 09/14/21 [facility] [address] [address] Allergies, Adverse Reactions, Alerts Substance Reaction Severity [...] 5 Refills, Maintenance, 08/12/21 14:00:00 EDT, Powder, [facility]/pharmacy #[id number], Partial fill upon patient request if the [...] 11 Refills, Maintenance, 08/15/21 14:23:00 EDT, Powder, [facility]/pharmacy #[id number], Partial fill upon patient request if [...]
--- OUTSIDE RECORDS SUMMARY | 2023-11-16 11:17 | XMS_ITS | Continuity of Care Document ---
Author Name Unknown Organization [facility] Address [address] [address]- Care Team Providers Care Arboriculture Instructor Name Role Phone Emre CORNELIUS, Haroldo Smallwood Primary Care Physician [place] [facility] [place] Date(s): 08/15/21 - 09/14/21 [facility] [address] [address] Allergies, Adverse Reactions, Alerts Substance Reaction Severity [...] 5 Refills, Maintenance, 08/12/21 14:00:00 EDT, Powder, [facility]/pharmacy #[id number], Partial fill upon patient request if the [...] 11 Refills, Maintenance, 08/15/21 14:23:00 EDT, Powder, [facility]/pharmacy #[id number], Partial fill upon patient request if [...]
--- OUTSIDE RECORDS SUMMARY | 2023-11-16 11:17 | XMS_ITS | Continuity of Care Document ---
Author Name Unknown Organization [facility] Address [address] [address]- Care Team Providers Care Prestressed Concrete Laborer Name Role Phone Emre CORNELIUS, Haroldo Smallwood Primary Care Physician [place] [facility] [place](s): 09/08/21 - 10/08/21 [facility] [address] [address]- Allergies, Adverse Reactions, Alerts Substance Reaction Severity [...] 5 Refills, Maintenance, 08/12/21 14:00:00 EDT, Powder, [facility]/pharmacy #[id number], Partial fill upon patient request if the [...] 11 Refills, Maintenance, 08/15/21 14:23:00 EDT, Powder, [facility]/pharmacy #[id number], Partial fill upon patient request if [...]
--- OUTSIDE RECORDS SUMMARY | 2023-11-16 11:17 | XMS_ITS | Continuity of Care Document ---
Author Name Unknown Organization [facility] Address [address] [place] [address]- Care Team Providers Care Felling Bucking Supervisor Name Role Phone Emre CORNELIUS, Haroldo Smallwood Primary Care Physician [phone] En[place] [facility] [place]CT R [id number] Date(s): 01/08/23 - 02/07/23 [facility] [address] [place] [address] Attending Physician: Gilmer Nino Admitting Physician: AdmGilmer hitchcock Referring Physician: AdmtrGilmer Allergies, Adverse Reactions, Alerts Substance Reaction Severity [...] each, 6 Refills, Maintenance, 10/04/22 10:08:00 EST, [facility] STORE 30852, 30, INHALE 1 PUFF BY MOUTH DAILY, 188, cm, 08/18/22 14:08:00 EDT, Height, 68.2, kg, 09/14/21 8:15:00 EDT, Dry Weight Start Date: 10/04/22 Status: Ordered Flexeril 10 mg oral tablet 1 tablet = 10 mg, By Mouth, 3 times a day, Maintenance, 10/05/11 13:26:43 EDT Start Date: 08/30/11 Status: Ordered [...] each, 11 Refills, Maintenance, 10/04/22 10:08:00 EST, [facility] STORE 67729, 188, cm, 08/18/22 14:08:00 EDT, Height, 68.2, [...] Display: Inpatient Consult Note, Non-BH Authored Date: Note * Event Display: Non Cardiovascular Results Authored Date: * Event Display: EKG Non Authored Date: Patient Care team information Care Team Personnel Name: Emre CORNELIUS, Haroldo Smallwood Position: Reference Physician Member Role: PCP Address: Address: [address] [place] [address]- Name: Carolina Lyons RN Position: S ED RN W/OE and Tasks Member Role: Primary Care Nurse Care Team Related Persons Name: SANDRA GUIDRY Address: [address] [place] [address]
--- OUTSIDE RECORDS SUMMARY | 2023-11-16 11:18 | XMS_ITS | Continuity of Care Document ---
Author Name Unknown Organization [facility] Address [address] [address]- Care Team Providers Care Assistant Professor Of Chemistry Name Role Phone Haroldo Andrea MD Primary Care Physician En[place] [facility] [place] Date(s): 02/10/22 - 03/12/22 [facility] [address] [address]- Attending Physician: Gilmer Nino Admitting Physician: Gilmer Nino Referring Physician: [email or web address] Allergies, Adverse Reactions, Alerts Substance Reaction Severity [...] 6 Refills, Maintenance, 11/17/21 13:13:00 EST, Powder, [facility]/pharmacy #[id number], Partial fill upon patient request if the [...] 11 Refills, Maintenance, 11/17/21 13:14:00 EST, Powder, [facility]/pharmacy #[id number], Partial fill upon patient request if the [...]
--- OUTSIDE RECORDS SUMMARY | 2023-11-16 11:18 | XMS_ITS | Continuity of Care Document ---
Author Name Unknown Organization [facility] ter Address [address] [place] [address]- Care Team Providers Care Electron Microscopist Name Role Phone Emre CORNELIUS, Haroldo P Primary Care Physician Encounter [facility] [place] Date(s): 02/14/22 - 03/22/[address] [address]- Attending Physician: Byron Perla MD Admitting Physician: [...] 6 Refills, Maintenance, 11/17/21 13:13:00 EST, Powder, [facility]/pharmacy #[id number], Partial fill upon patient request if the [...] 11 Refills, Maintenance, 11/17/21 13:14:00 EST, Powder, [facility]/pharmacy #[id number], Partial fill upon patient request [...]
[2023-11-16] MEDS: Diphth,Pertus(ACell),Tet Adult 0.5 ML SYRINGE IM (11:24)
[2023-11-16] MEDS: Lidocaine HCl 1 % MPF 5 ML VIAL SUBCUT ×2 (11:27)
--- NOTE | 2023-11-16 11:37 | PC.NURSE ---
tdap given left deltoid, pt tolerated well, VIS given.
--- NOTE | 2023-11-16 12:25 | ED.FALL ---
HPI - Fall General Chief Complaint: Fall Stated Complaint: needs stitches Time Seen by Provider: 11/16/23 10:57 History of Present Illness HPI Narrative: Patient complains of laceration to left eyebrow when he tripped and fell over the hose in the gas station striking his face, he had no loss of consciousness he had no headache he has no retrograde amnesia no confusion he is not on any blood thinner he has no vision changes no nausea or vomiting no balance issues he has no neck pain he denies any other injury no other pain or discomfort he only struck his left eyebrow forehead area Related Data Previous Rx's Medication Instructions Recorded ibuprofen 800 mg tablet 800 mg PO TID #90 tabs 03/26/21 Allergies Allergy/AdvReac Type Severity Reaction Status Date / Time Iodinated Contrast Media Allergy Severe ANAPHYLAXIS Unverified 08/12/20 18:13 [IV DYE, IODINE CONTAINING CONTRAST ] buspirone Allergy Unknown dizziness Verified 05/21/19 00:00 buspirone Allergy Unknown dizziness Uncoded 07/03/19 00:[address] Allergy Unknown respiratory Uncoded 07/03/19 00:[address] Scan dye Allergy Unknown respiratory Uncoded 05/21/19 00:00 arrest sea food Allergy Unknown Uncoded 07/03/19 00:00 SEAFOOD Allergy Unknown UNKNOWN Uncoded 08/12/20 18:13 seafood Allergy Unknown Uncoded 05/21/19 00:00 [facility] Past Medical History Source: nursing notes reviewed Medical History COVID-19 Surgical History S/P cervical spinal fusion Social History Social History Alcohol intake: never Patient Tobacco Use Status: Former Tobacco user Advance Directives: No Advance Directives Information Provided: No Physical Exam Vital Signs: Vital Signs: Last Vital Signs Temp 97.9 F 11/16/23 10:50 Pulse 79 11/16/23 10:50 Resp 16 11/16/23 12:35 BP 126/69 11/16/23 10:50 Pulse Ox 95 11/16/23 10:50 O2 Del Method Room Air 11/16/23 10:50 BMI result Body Mass Index 21.6 General appearance comfortable, cooperative no acute distress The exam of the head the scalp has no hematoma no deformities, there is no raccoon eyes no Guerin sign The facial exam there is a 4 cm laceration gaping over left eyebrow and forehead, there is no significant bony tenderness there are no other deformities in the face the mandible has full range motion Pupils equal round reactive to light extraocular motions intact Neck is supple and nontender Respiratory no distress Extremities full range of motion x4 Neuro gait balance are normal, interaction comprehension and expression are normal, cranial nerves 2-12 intact as tested, motor is 5/5 x4, cerebellar exam is normal Course Course Course Narrative: Patient with trip and fall no syncope no preceding dizziness which resulted in a laceration of the forehead just above the left eyebrow with no evidence of intracranial injury Patient is comfortable cooperative and cheerful throughout visit with no complaint of headache or nausea or dizziness Laceration repair The 4 cm left forehead laceration is cleansed and irrigated with normal saline Anesthesia is 6 cc of 1% lidocaine Closure is 2 internal sutures 5 0 Vicryl Rapide followed by 65.0 nylon sutures with good closure bleeding controlled Medications Administered Discontinued Medications Generic Name Dose Route Start Last Admin Trade Name Freq PRN Reason Stop Dose Admin Diphtheria/Tetanus/Acell Pertussis 0.5 ml 11/16/23 11:01 11/16/23 11:24 Diphth,Pertus(Acell),Tet Adult 0.5 Ml Syringe IM 11/16/23 11:02 0.5 ml .ONCE ONE Administration Lidocaine HCl 5 ml 11/16/23 11:01 11/16/23 11:27 Lidocaine Hcl 1 % Mpf 5 Ml Vial SUBCUT 11/16/23 11:02 5 ml ONCE ONE Administration Lidocaine HCl 5 ml 11/16/23 11:01 11/16/23 11:27 Lidocaine Hcl 1 % Mpf 5 Ml Vial SUBCUT 11/16/23 11:02 5 ml ONCE ONE Administration Discharge Plan Discharge Clinical Impression: Forehead laceration Patient Disposition: Home, Self-Care Additional Instructions: Stitches out in 5-7 days You got a tetanus shot Return any time for redness swelling any sign of infection Prescriptions: No Action ibuprofen 800 mg tablet 800 mg PO TID Qty: 90 6RF Interventions: ED Discharge Assessment Last Done: 11/16/23 12:37 Discharge Date/Time: 11/16/23 12:37
[2023-11-16 12:35] VITALS: RESP 16
== END 2023-11-16 12:37 | disposition home or self-care (01) ==
PROVIDERS: Emergency Provider Emergency Medicine Emergency Medical Services
DX: S01.81XA Laceration without foreign body of other part of head, initial encounter (principal); S00.81XA Abrasion of other part of head, initial encounter; W01.10XA Fall on same level from slipping, tripping and stumbling with subsequent striking against unspecified object, initial encounter; Y93.9 Activity, unspecified; Y92.524 Gas station as the place of occurrence of the external cause; Y99.9 Unspecified external cause status
CPT/HCPCS: 90471; 90715; 99282; 99284

== ENCOUNTER 2023-11-22 11:25 | Emergency (ER) | payer OTHER, SELFPAY ==
--- NOTE | 2023-11-22 12:02 | ED.GENADULT ---
HPI - General Adult General Chief complaint: Wound/Laceration Stated complaint: suture removal Time Seen by Provider: 11/22/23 12:06 Source: patient Mode of arrival: ambulatory Limitations: no limitations History of Present Illness HPI narrative: 58 year old male with no significant pmhx presents to the ED today requesting suture removal. Reports tripping over a gas hose while at the gas station on 10/27/23. Was seen at [facility] ED for forehead laceration and had 6 sutures placed. Was informed to return in 5-7 days for removal. Presents today on day 6. Denies drainage, bleeding, redness, or warmth to the laceration. Denies fever/ chills, headache, dizziness, nausea, vomiting. No complaints at present. Related Data Previous Rx's Medication Instructions Recorded ibuprofen 800 mg tablet 800 mg PO TID #90 tabs 03/26/21 Allergies Allergy/AdvReac Type Severity Reaction Status Date / Time Iodinated Contrast Media Allergy Severe ANAPHYLAXIS Unverified 08/12/20 18:13 [IV DYE, IODINE CONTAINING CONTRAST ] buspirone Allergy Unknown dizziness Verified 05/21/19 00:00 buspirone Allergy Unknown dizziness Uncoded 07/03/19 00:[address] Allergy Unknown respiratory Uncoded 07/03/19 00:[address] Scan dye Allergy Unknown respiratory Uncoded 05/21/19 00:00 arrest sea food Allergy Unknown Uncoded 07/03/19 00:00 SEAFOOD Allergy Unknown UNKNOWN Uncoded 08/12/20 18:13 seafood Allergy Unknown Uncoded 05/21/19 00:00 Review of Systems Review of Systems: Yes all other systems are reviewed and are negative PMFSH Past Medical History Attestation statement: The following information was validated with the patient. Source: old records reviewed and nursing notes reviewed Medical History COVID-19 Surgical History S/P cervical spinal fusion Social History Social History Alcohol intake: never Patient Tobacco Use Status: Former Tobacco user Advance Directives: No Advance Directives Information Provided: Yes Physical Exam ED Vital Signs: Vital Signs - 24 hr 11/22/23 12:03 Temperature 98 F Pulse Rate 74 Respiratory Rate 16 Blood Pressure 108/64 Pulse Oximetry 95 Oxygen Delivery Method Room Air BMI result Body Mass Index 20.5 vital signs stable Const General: cooperative, no acute distress, alert and awake Orientation/consciousness: patient oriented x3 Limitations: no limitations HENMT Other: + There is a 4cm laceration noted to the left eye brow that has been closed with 6 sutures. The area is clean, dry and intact. No surround erythema or discharge. No active bleeding. No palpable warmth or fluctuance. The wound is healing well. Head: Yes normocephalic and Yes atraumatic Eyes Pupils: Equal, round and reactive pupils present Resp Effort & Inspection: normal respiratory effort Cardio Rate: regular rate Rhythm: regular rhythm Skin Other: + see above General skin exam: no rashes or lesions noted Neuro General: patient oriented x3 and gait normal Cranial nerves: Yes Equal, round and reactive pupils present Course Course Course Narrative: 1215-- 6 sutures removed from closed left eyebrow laceration without complication. No active bleeding or discharge noted. Patient tolerated procedure well. Advised him to use bacitracin at home. Discussed worrisome signs/symptoms and when to return to the ED. Patient has remained stable throughout ED visit today. All questions answered at this time. Patient is agreeable with disposition and stable for discharge. Medical Decision Making Medical Decision Making MDM Narrative: 58 year old male with no significant pmhx presents to the ED today requesting suture removal. Vital signs are stable. He is nontoxic appearing and in NAD. There is a 4cm laceration noted to the left eye brow that has been closed with 6 sutures. The area is clean, dry and intact. No surround erythema or discharge. No active bleeding. No palpable warmth or fluctuance. The wound is healing well. PEERGARRETT. Plan for suture removal and disposition. Differential Diagnosis Differential Diagnoses: The differential diagnosis associated with the presentation includes as above. Admission/Observation not indicated. External Record Review External record reviewed: Inpatient record Critical Care Time Critical Care Time Critical Care Time: No Discharge Plan Discharge Clinical Impression: Encounter for removal of sutures Patient Disposition: Home, Self-Care Instructions: Stitches Removal (ED) Additional Instructions: 6 stitiches were removed from your forehead laceration today. You may continue to place bacitracin or neosporin ointment on the wound as needed. If the area opens, drains, you develop fever, or if the area become warm or red, please return to the ED as this may indicate infection. Follow up with your PCP as needed. In the case of an emergency call 911. Prescriptions: No Action ibuprofen 800 mg tablet 800 mg PO TID Qty: 90 6RF Interventions: ED Discharge Assessment Last Done: 11/22/23 12:17 Discharge Date/Time: 11/22/23 12:18
[2023-11-22 12:03] VITALS: BP 108/64; PULSE 74; RESP 16; TEMP 36.6; O2SAT 95; BMI 20.5
--- OUTSIDE RECORDS SUMMARY | 2023-11-22 12:08 | XMS_ITS | Continuity of Care Document ---
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 Start Date: 07/18/21 Status: Ordered Advair Diskus 100 mcg-50 mcg inhalation powder 1, puffs, Inhalation, 2 times a day, # 1 each, Refills 5, Tot. Refills 5, Maintenance, 08/13/23 10:27:00 EDT, Powder, Route to Pharmacy Electronically, [id number], [facility]/pharmacy #[id number], 188, cm, 08/18/22 14:08:00 EDT, Height, 6... Start Date: 08/13/23 Status: Ordered amiTRIPTYLINE = 25 mg, By [...] hours, # 30 each, 11 Refills, Maintenance, 11/05/23 13:01:00 EST, [facility] STORE [id number], 188, cm, 08/18/22 14:08:00 EDT, Height Start Date: 11/05/23 Status: Ordered Keppra 500 mg oral tablet [...] Reference Physician Member Role: PCP Address: Address: [address] [place] [id number]- Name: Carolina Lyons RN Position: S RN Member Role: Primary Care Nurse Care Team Related Persons Name: SANDRA GUIDRY Address: [address] [place] [address]
--- OUTSIDE RECORDS SUMMARY | 2023-11-22 12:08 | XMS_ITS | Continuity of Care Document ---
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 [employer] Name Role Phone Emre CORNELIUS, Haroldo Smallwood Primary Care Physician Encounter [facility] Date(s): 10/22/23 - 11/21/23 [facility] [address] [place] [id number] Attending Physician: Gilmer Nino Admitting Physician: Admtr, Gilmer Referring Physician: Admtr, Ar8 Allergies, Adverse Reactions, [...] 10:27:00 EDT, Powder, Route to Pharmacy Electronically, [id number], [facility]/pharmacy #[id number], 188, cm, 08/18/22 14:08:00 EDT, Height, [...] each, 11 Refills, Maintenance, 11/05/23 13:01:00 EST, [facility] STORE [id number], 188, cm, 08/18/22 14:08:00 EDT, Height Start [...] Physician Member Role: PCP Address: Address: [address] [place] [id number]- Name: Carolina Lyons RN Position: [facility] RN Member Role: Primary Care Nurse Care Team Related Persons Name: CHAO SANDRA Address: [address] [place] [address]
== END 2023-11-22 12:18 | disposition home or self-care (01) ==
PROVIDERS: Emergency Provider Emergency Medicine
DX: Z48.02 Encounter for removal of sutures (principal)
CPT/HCPCS: 99282